=== PATIENT | male | born 1960 | race African-American/Black ===

== ENCOUNTER 2017-02-18 15:38 | Emergency (ER) | payer MEDICAID ==
[~2017-02-18] VITALS: Ht 180.3 cm; Wt 75.0 kg
[2017-02-18] MEDS ORDERED: KETOROLAC 30MG/ML VIAL IV ONE (19:00)
[2017-02-18] MEDS ORDERED: HYDROCODONE/APAP 7.5/325MG 1 TAB TABLET PO ONE (21:15)
[2017-02-18 22:40] VITALS: BP 120/66
== END 2017-02-19 04:32 | disposition home or self-care (01) ==
LOC: ER 02-19 04:32
DX: M54.5 Low back pain (principal); M25.572 Pain in left ankle and joints of left foot; M25.571 Pain in right ankle and joints of right foot; V23.4XXA Motorcycle driver injured in collision with car, pick-up truck or van in traffic accident, initial encounter; Y93.89 Activity, other specified; Y92.488 Other paved roadways as the place of occurrence of the external cause
CPT/HCPCS: 70450; 71010; 72125; 72131; 73610; 96374; 99284; J1885; Z7610

== ENCOUNTER 2017-12-21 16:09 | Emergency (ER) | payer MEDICAID ==
[~2017-12-21] VITALS: Ht 180.3 cm; Wt 80.0 kg
[2017-12-21 22:05] VITALS: BP 137/57
== END 2017-12-21 22:29 | disposition home or self-care (01) ==
LOC: ER 17:13
DX: H61.21 Impacted cerumen, right ear (principal); H60.91 Unspecified otitis externa, right ear; B19.20 Unspecified viral hepatitis C without hepatic coma
CPT/HCPCS: 99283; X7700